=== PATIENT | male | born 1955 | race Caucasian/White ===

== ENCOUNTER 2017-11-17 16:11 | Inpatient (IN) | payer MEDICAID ==
[~2017-11-17] VITALS: Ht 190.5 cm; Wt 118.0 kg
[2017-11-17] MEDS ORDERED: temazepam 15mg capsule PO PRN (21:00)
[2017-11-17 22:00] VITALS: BP 140/87
[2017-11-17] MEDS ORDERED: ASPI-1265 PO (22:52)
[2017-11-17] MEDS ORDERED: acetaminophen 325mg tablet PO PRN ×2 (23:20)
[2017-11-17] MEDS ORDERED: diphenhydrAMINE 25mg capsule PO PRN (23:20)
[2017-11-17] MEDS ORDERED: HYDROmorphone 1 mg/ml syringe IV PRN ×2 (23:20)
[2017-11-17] MEDS ORDERED: metoclopramide 5 mg/ml inj IV PRN (23:20)
[2017-11-17] MEDS ORDERED: diphenhydrAMINE 50 mg/ml inj IV PRN (23:20)
[2017-11-17] MEDS ORDERED: morphine 2 MG/ML inj. syringe IV PRN ×2 (23:20)
[2017-11-17] MEDS ORDERED: dextrose 50%-water 50ml dispensing syringe IV PRN ×3 (23:20)
[2017-11-17] MEDS ORDERED: LORazepam 1 MG tablet PO PRN (23:20)
[2017-11-17] MEDS ORDERED: haloperidol lactate 5mg/ml inj IM PRN (23:20)
[2017-11-17] MEDS ORDERED: glucagon, human recombinant 1mg kit SUBCUT PRN (23:20)
[2017-11-17] MEDS ORDERED: acetaminophen 650mg rectal suppository RC PRN (23:20)
[2017-11-17] MEDS ORDERED: MESSAGE TO PHARMACY PO ONE (23:20)
[2017-11-17] MEDS ORDERED: HYDROcodone/acetaminophen 5mg/325mg tablet PO PRN (23:20)
[2017-11-17] MEDS ORDERED: LORazepam 2 mg/ml vial IV PRN (23:20)
[2017-11-17] MEDS ORDERED: magnesium hydroxide 30ml (MOM) UD suspension PO PRN (23:20)
[2017-11-17] MEDS ORDERED: HYDROcodone/acetaminophen 10/325mg tab PO PRN (23:20)
[2017-11-17] MEDS ORDERED: mag hydrox/Alum hydrox/simeth 30ml oral suspension PO PRN (23:20)
[2017-11-17] MEDS ORDERED: ondansetron/PF 4mg/2ml inj IV PRN (23:20)
[2017-11-17] MEDS ORDERED: dextrose ORAL solution 15 GM/59 ML bottle PO PRN ×2 (23:20)
[2017-11-17] MEDS ORDERED: bisacodyl 10mg suppository rectal RC PRN (23:20)
[2017-11-17] MEDS ORDERED: haloperidol 5mg tablet PO PRN (23:20)
[2017-11-18 01:25] LABS: INR 1.1 INR; PARTIAL THROMBOPLASTIN TIME 30 SECONDS (22-32); PROTHROMBIN TIME 11.4 SECONDS (9.0-12.0)
[2017-11-18 01:35] LABS: MAGNESIUM 1.8 MG/DL (1.5-2.4); PHOSPHORUS 2.9 MG/DL (2.3-4.5)
[2017-11-18] MEDS: vancomycin/NS 1 GM ADD-VANTAGE 250 ML IV SCH ×2 (01:36→02:00)
[2017-11-18 01:54] LABS: BASOPHILS # (AUTO) 0.1 X10'3 (0-0.2); BASOPHILS % (AUTO) 1.2 % (0-1); EOSINOPHILS # (AUTO) 0.3 X10'3 (0-0.9); EOSINOPHILS % (AUTO) 5.3 % (0-6); HEMATOCRIT 44.2 % (42.0-52.0); HEMOGLOBIN 14.3 g/dl (14.0-17.9); LYMPHOCYTES # (AUTO) 0.9 X10'3 (1.1-4.8); LYMPHOCYTES % (AUTO) 16.9 % (21-51); MEAN CORPUSCULAR HEMOGLOBIN 29.2 PG (27.0-31.0); MEAN CORPUSCULAR HGB CONC 32.5 % (33.0-36.5); MEAN PLATELET VOLUME 7.6 FL (7.4-10.4); MONOCYTES # (AUTO) 0.7 X10'3 (0-0.9); MONOCYTES % (AUTO) 13.8 % (2-12); NEUTROPHILS # (AUTO) 3.3 X10'3 (1.8-7.7); NEUTROPHILS % (AUTO) 62.8 % (42-75); PLATELET COUNT 242 X10'3 (140-440); RED BLOOD COUNT 4.91 X10'6 (4.70-6.10); RED CELL DISTRIBUTION WIDTH 14.9 % (11.5-14.5); WHITE BLOOD COUNT 5.3 X10'3 (4.5-11.0)
[2017-11-18 02:00] VITALS: BP 131/81
[2017-11-18 02:55] LABS: HEMOGLOBIN A1C 9.8 % (4.5-6.2)
[2017-11-18 05:08] LABS: BASOPHILS # (AUTO) 0.1 X10'3 (0-0.2); BASOPHILS % (AUTO) 1.5 % (0-1); EOSINOPHILS # (AUTO) 0.4 X10'3 (0-0.9); EOSINOPHILS % (AUTO) 6.1 % (0-6); HEMATOCRIT 42.8 % (42.0-52.0); HEMOGLOBIN 14.1 g/dl (14.0-17.9); LYMPHOCYTES % (AUTO) 16.1 % (21-51); MEAN CORPUSCULAR HEMOGLOBIN 29.9 PG (27.0-31.0); MEAN CORPUSCULAR VOLUME 90.5 FL (78-98); MEAN PLATELET VOLUME 7.2 FL (7.4-10.4); MONOCYTES # (AUTO) 0.8 X10'3 (0-0.9); MONOCYTES % (AUTO) 13.9 % (2-12); NEUTROPHILS # (AUTO) 3.7 X10'3 (1.8-7.7); NEUTROPHILS % (AUTO) 62.4 % (42-75); PLATELET COUNT 252 X10'3 (140-440); RED BLOOD COUNT 4.72 X10'6 (4.70-6.10); RED CELL DISTRIBUTION WIDTH 15.9 % (11.5-14.5); WHITE BLOOD COUNT 5.9 X10'3 (4.5-11.0)
[2017-11-18] MEDS ORDERED: magnesium 4gm in 100ml NS 100 ML IV PRN (05:35)
[2017-11-18] MEDS ORDERED: sodium phosphate inj. 30 MMOL in dextrose 5%-water 250 ML IV PRN (05:35)
[2017-11-18] MEDS ORDERED: Neutra Phos packet PO PRN (05:35)
[2017-11-18] MEDS ORDERED: potassium Cl 20 mEq SR tablet PO PRN ×2 (05:35)
[2017-11-18] MEDS ORDERED: magnesium 2GM in 50ml NS 50 ML IV PRN (05:35)
[2017-11-18] MEDS ORDERED: sodium phosphate inj. 15 MMOL in dextrose 5%-water 150 ML IV PRN (05:35)
[2017-11-18] MEDS ORDERED: magnesium Cl slow-release 64mg tablet PO PRN (05:35)
[2017-11-18 06:00] VITALS: BP 127/74
[2017-11-18 06:00] LABS: ALBUMIN 2.4 G/DL (3.4-5.0); ALBUMIN/GLOBULIN RATIO 0.6 (1.1-1.5); ANION GAP 3 (8-16); ASPARTATE AMINO TRANSFERASE 56 U/L (10-37); BILIRUBIN,TOTAL 0.6 MG/DL (0.1-1.0); BLOOD UREA NITROGEN 14 MG/DL (7-18); CALCIUM 8.1 MG/DL (8.5-10.1); CHLORIDE 99 MMOL/L (99-107); GLUCOSE 148 MG/DL (70-104); MAGNESIUM 1.8 MG/DL (1.5-2.4); PHOSPHORUS 2.9 MG/DL (2.3-4.5); POTASSIUM 3.6 MMOL/L (3.5-5.1); SODIUM 140 MMOL/L (135-145); TOTAL CARBON DIOXIDE 38.3 MMOL/L (24-32); TOTAL PROTEIN 6.2 G/DL (6.4-8.2); eGFR 75 ML/MIN
[2017-11-18 06:01] LABS: ALANINE AMINOTRANSFERASE 48 U/L (12-78); ALKALINE PHOSPHATASE 316 IU/L (46-116); CHOL/HDL RATIO 2.1 (0.00-4.99); CHOLESTEROL 103 MG/DL (0-200); HDL CHOLESTEROL 49 MG/DL (35-60); LDL CHOLESTEROL 43 MG/DL (50-100); TRIGLYCERIDES 73 MG/DL (20-135)
[2017-11-18] MEDS: aspirin 81mg tab.chew PO SCH (07:14)
[2017-11-18] MEDS: docusate sod 100mg capsule PO SCH ×2 (07:14→19:22)
[2017-11-18] MEDS: pantoprazole 40mg Tablet.DR PO SCH (07:14)
[2017-11-18] MEDS: enoxaparin 30mg/0.3ml syringe SQ SCH ×2 (07:15→19:23)
[2017-11-18] MEDS: nicotine 21mg patch - 24 hr TD SCH (07:17)
[2017-11-18] MEDS ORDERED: vancomycin/NS 1 GM ADD-VANTAGE 250 ML IV SCH (08:00)
[2017-11-18 09:25] LABS: COLOR,URINE Yellow (Yellow); GLUCOSE, URINE Negative (Neg); KETONES,URINE Negative (Neg); LEUKOCYTE ESTERASE ,URINE Trace (Neg); NITRITES, URINE Negative (Neg); OCCULT BLOOD,URINE Moderate (Neg); PROTEIN,URINE 100 mg/dl (Neg)
[2017-11-18 09:31] LABS: CLARITY,URINE SLIGHTLY CLOUDY (Clear); UA COLLECTION TYPE NON-SPECIFIED
[2017-11-18 09:50] LABS: BACTERIA,URINE FEW /HPF (Neg); MUCUS STRANDS NONE SEEN /LPF (Neg); RBC,URINE 20-50 /HPF (0-2); SQUAMOUS EPITHELIAL CELL,UR NONE SEEN /LPF (FEW); WBC,URINE 0-4 /HPF (0-4)
[2017-11-18 11:00] VITALS: BP 154/101
[2017-11-18 12:37] LABS: ALBUMIN 2.3 G/DL (3.4-5.0); ANION GAP 1 (8-16); BLOOD UREA NITROGEN 13 MG/DL (7-18); CALCIUM 8.3 MG/DL (8.5-10.1); CHLORIDE 100 MMOL/L (99-107); GLUCOSE 151 MG/DL (70-104); MAGNESIUM 1.8 MG/DL (1.5-2.4); PHOSPHORUS 2.9 MG/DL (2.3-4.5); POTASSIUM 3.8 MMOL/L (3.5-5.1); SODIUM 141 MMOL/L (135-145); eGFR 75 ML/MIN
[2017-11-18] MEDS ORDERED: levoFLOXACIN-Levaquin 750MG/D5 150 ML IV STA (13:42)
[2017-11-18 15:00] VITALS: BP 147/96
[2017-11-18 19:00] VITALS: BP 144/86
[2017-11-18] MEDS: insulin Lispro (HumaLOG) vial - multi-dose SQ SCH (19:13)
[2017-11-18] MEDS: insulin glargine (Lantus) pen - multi-dose SQ SCH (21:28)
[2017-11-18] MEDS ORDERED: VANCOMYCIN LEVEL IV ONE (23:30)
[2017-11-18 23:44] VITALS: BP 149/86
[2017-11-19] VITALS (7 sets, daily range): BP systolic 133–163; BP diastolic 67–103
[2017-11-19 00:02] LABS: ALBUMIN 2.3 G/DL (3.4-5.0); ANION GAP 2 (8-16); BLOOD UREA NITROGEN 15 MG/DL (7-18); CALCIUM 8.2 MG/DL (8.5-10.1); CHLORIDE 102 MMOL/L (99-107); GLUCOSE 130 MG/DL (70-104); MAGNESIUM 1.7 MG/DL (1.5-2.4); PHOSPHORUS 2.7 MG/DL (2.3-4.5); POTASSIUM 3.9 MMOL/L (3.5-5.1); SODIUM 141 MMOL/L (135-145); TOTAL CARBON DIOXIDE 37.1 MMOL/L (24-32); eGFR 75 ML/MIN
[2017-11-19 00:04] LABS: VANCOMYCIN,TROUGH 26.2 UG/ML (6.0-14.0)
[2017-11-19 05:34] LABS: BASOPHILS # (AUTO) 0.1 X10'3 (0-0.2); BASOPHILS % (AUTO) 1.1 % (0-1); EOSINOPHILS # (AUTO) 0.3 X10'3 (0-0.9); EOSINOPHILS % (AUTO) 5.2 % (0-6); HEMATOCRIT 42.9 % (42.0-52.0); HEMOGLOBIN 14.4 g/dl (14.0-17.9); LYMPHOCYTES # (AUTO) 0.8 X10'3 (1.1-4.8); LYMPHOCYTES % (AUTO) 12.3 % (21-51); MEAN CORPUSCULAR HEMOGLOBIN 30.3 PG (27.0-31.0); MEAN CORPUSCULAR HGB CONC 33.5 % (33.0-36.5); MEAN CORPUSCULAR VOLUME 90.5 FL (78-98); MEAN PLATELET VOLUME 7.3 FL (7.4-10.4); MONOCYTES # (AUTO) 0.8 X10'3 (0-0.9); MONOCYTES % (AUTO) 12.5 % (2-12); NEUTROPHILS # (AUTO) 4.6 X10'3 (1.8-7.7); NEUTROPHILS % (AUTO) 68.9 % (42-75); PLATELET COUNT 237 X10'3 (140-440); RED BLOOD COUNT 4.74 X10'6 (4.70-6.10); RED CELL DISTRIBUTION WIDTH 15.7 % (11.5-14.5); WHITE BLOOD COUNT 6.7 X10'3 (4.5-11.0)
[2017-11-19 05:49] LABS: ALANINE AMINOTRANSFERASE 45 U/L (12-78); ALBUMIN 2.4 G/DL (3.4-5.0); ALBUMIN/GLOBULIN RATIO 0.6 (1.1-1.5); ALKALINE PHOSPHATASE 339 IU/L (46-116); ANION GAP 3 (8-16); ASPARTATE AMINO TRANSFERASE 49 U/L (10-37); BILIRUBIN,TOTAL 0.8 MG/DL (0.1-1.0); BLOOD UREA NITROGEN 14 MG/DL (7-18); BUN/CREATININE RATIO 15.6 (5.4-32.0); CALCIUM 8.5 MG/DL (8.5-10.1); CHLORIDE 100 MMOL/L (99-107); GLUCOSE 116 MG/DL (70-104); MAGNESIUM 1.9 MG/DL (1.5-2.4); PHOSPHORUS 3.1 MG/DL (2.3-4.5); POTASSIUM 3.7 MMOL/L (3.5-5.1); SODIUM 140 MMOL/L (135-145); TOTAL PROTEIN 6.4 G/DL (6.4-8.2); eGFR 85 ML/MIN
[2017-11-19] MEDS: nicotine 21mg patch - 24 hr TD SCH (08:00)
[2017-11-19] MEDS: pantoprazole 40mg Tablet.DR PO SCH (08:39)
[2017-11-19] MEDS: levoFLOXACIN-Levaquin 750MG/D5 150 ML IV SCH (08:39)
[2017-11-19] MEDS: enoxaparin 30mg/0.3ml syringe SQ SCH ×2 (08:39→20:55)
[2017-11-19] MEDS: docusate sod 100mg capsule PO SCH ×2 (08:40→20:54)
[2017-11-19] MEDS: aspirin 81mg tab.chew PO SCH (08:40)
[2017-11-19] MEDS: insulin Lispro (HumaLOG) vial - multi-dose SQ SCH ×3 (09:22→18:59)
[2017-11-19] MEDS ORDERED: pneumococcal 23-VAL P-sac vacc 25 mcg/0.5ml vial IMVAC ONE (10:00)
[2017-11-19] MEDS: vancomycin/NS 1 GM ADD-VANTAGE 250 ML IV SCH (10:37)
[2017-11-19] MEDS: lactobacillus rhamnosus 10,000 MMU CELLS/CAPSULE PO SCH (19:04)
[2017-11-19] MEDS: insulin glargine (Lantus) pen - multi-dose SQ SCH (21:10)
[2017-11-20] MEDS: vancomycin/NS 1 GM ADD-VANTAGE 250 ML IV SCH ×3 (01:00→09:54)
[2017-11-20 02:00] VITALS: BP 151/96
[2017-11-20 06:16] LABS: BASOPHILS # (AUTO) 0.1 X10'3 (0-0.2); BASOPHILS % (AUTO) 0.8 % (0-1); EOSINOPHILS # (AUTO) 0.3 X10'3 (0-0.9); EOSINOPHILS % (AUTO) 4.5 % (0-6); HEMATOCRIT 44.3 % (42.0-52.0); HEMOGLOBIN 14.6 g/dl (14.0-17.9); LYMPHOCYTES # (AUTO) 0.9 X10'3 (1.1-4.8); LYMPHOCYTES % (AUTO) 12.2 % (21-51); MEAN CORPUSCULAR HEMOGLOBIN 30.1 PG (27.0-31.0); MEAN PLATELET VOLUME 8.1 FL (7.4-10.4); MONOCYTES # (AUTO) 0.9 X10'3 (0-0.9); MONOCYTES % (AUTO) 12.5 % (2-12); NEUTROPHILS # (AUTO) 4.9 X10'3 (1.8-7.7); PLATELET COUNT 218 X10'3 (140-440); RED BLOOD COUNT 4.86 X10'6 (4.70-6.10); RED CELL DISTRIBUTION WIDTH 15.4 % (11.5-14.5); WHITE BLOOD COUNT 7.1 X10'3 (4.5-11.0)
[2017-11-20 06:48] LABS: ALANINE AMINOTRANSFERASE 43 U/L (12-78); ALBUMIN 2.6 G/DL (3.4-5.0); ALBUMIN/GLOBULIN RATIO 0.6 (1.1-1.5); ALKALINE PHOSPHATASE 362 IU/L (46-116); ANION GAP 5 (8-16); ASPARTATE AMINO TRANSFERASE 41 U/L (10-37); BILIRUBIN,TOTAL 0.8 MG/DL (0.1-1.0); BLOOD UREA NITROGEN 15 MG/DL (7-18); BUN/CREATININE RATIO 16.7 (5.4-32.0); CALCIUM 8.6 MG/DL (8.5-10.1); CHLORIDE 101 MMOL/L (99-107); GLUCOSE 111 MG/DL (70-104); MAGNESIUM 1.9 MG/DL (1.5-2.4); PHOSPHORUS 3.7 MG/DL (2.3-4.5); POTASSIUM 3.7 MMOL/L (3.5-5.1); SODIUM 141 MMOL/L (135-145); TOTAL CARBON DIOXIDE 34.8 MMOL/L (24-32); TOTAL PROTEIN 6.8 G/DL (6.4-8.2); eGFR 85 ML/MIN
[2017-11-20 07:14] VITALS: BP 165/100
[2017-11-20] MEDS: levoFLOXACIN-Levaquin 750MG/D5 150 ML IV SCH (07:59)
[2017-11-20] MEDS: lactobacillus rhamnosus 10,000 MMU CELLS/CAPSULE PO SCH ×2 (07:59→16:57)
[2017-11-20] MEDS: aspirin 81mg tab.chew PO SCH (07:59)
[2017-11-20] MEDS: docusate sod 100mg capsule PO SCH ×2 (07:59→20:59)
[2017-11-20] MEDS: pantoprazole 40mg Tablet.DR PO SCH (08:00)
[2017-11-20] MEDS: clopidogrel 75mg tablet PO SCH (08:00)
[2017-11-20] MEDS: enoxaparin 30mg/0.3ml syringe SQ SCH ×2 (08:00→21:00)
[2017-11-20] MEDS: nicotine 21mg patch - 24 hr TD SCH (08:00)
[2017-11-20] MEDS: thiamine 100mg tablet PO SCH (08:00)
[2017-11-20] MEDS ORDERED: VANCOMYCIN LEVEL IV ONE (08:30)
[2017-11-20] MEDS: insulin Lispro (HumaLOG) vial - multi-dose SQ SCH ×3 (09:31→19:03)
[2017-11-20] MEDS: lisinopril 10 MG tablet PO SCH (09:54)
[2017-11-20 11:24] VITALS: BP 153/79
[2017-11-20 20:00] VITALS: BP 191/110
[2017-11-20] MEDS: metroNIDAZOLE 500mg tablet PO SCH (20:59)
[2017-11-20] MEDS: hyDRALAzine 10mg tablet PO PRN (21:00)
[2017-11-20] MEDS: insulin glargine (Lantus) pen - multi-dose SQ SCH (21:10)
[2017-11-21] VITALS: BP 157/98
[2017-11-21 05:57] LABS: ALANINE AMINOTRANSFERASE 34 U/L (12-78); ALBUMIN 2.5 G/DL (3.4-5.0); ALBUMIN/GLOBULIN RATIO 0.6 (1.1-1.5); ALKALINE PHOSPHATASE 347 IU/L (46-116); ANION GAP 4 (8-16); ASPARTATE AMINO TRANSFERASE 32 U/L (10-37); BILIRUBIN,TOTAL 0.7 MG/DL (0.1-1.0); BLOOD UREA NITROGEN 17 MG/DL (7-18); CALCIUM 8.9 MG/DL (8.5-10.1); CHLORIDE 102 MMOL/L (99-107); GLUCOSE 118 MG/DL (70-104); MAGNESIUM 1.9 MG/DL (1.5-2.4); PHOSPHORUS 4.1 MG/DL (2.3-4.5); POTASSIUM 3.7 MMOL/L (3.5-5.1); SODIUM 141 MMOL/L (135-145); TOTAL CARBON DIOXIDE 34.7 MMOL/L (24-32); TOTAL PROTEIN 6.7 G/DL (6.4-8.2); eGFR 75 ML/MIN
[2017-11-21 05:59] LABS: BASOPHILS % (AUTO) 0.3 % (0-1); EOSINOPHILS # (AUTO) 0.3 X10'3 (0-0.9); EOSINOPHILS % (AUTO) 3.9 % (0-6); HEMATOCRIT 44.8 % (42.0-52.0); HEMOGLOBIN 14.7 g/dl (14.0-17.9); LYMPHOCYTES # (AUTO) 0.8 X10'3 (1.1-4.8); LYMPHOCYTES % (AUTO) 11.8 % (21-51); MEAN CORPUSCULAR HEMOGLOBIN 29.9 PG (27.0-31.0); MEAN CORPUSCULAR HGB CONC 32.7 % (33.0-36.5); MEAN CORPUSCULAR VOLUME 91.5 FL (78-98); MEAN PLATELET VOLUME 7.7 FL (7.4-10.4); MONOCYTES # (AUTO) 0.9 X10'3 (0-0.9); MONOCYTES % (AUTO) 12.2 % (2-12); NEUTROPHILS % (AUTO) 71.8 % (42-75); PLATELET COUNT 259 X10'3 (140-440); RED CELL DISTRIBUTION WIDTH 15.8 % (11.5-14.5)
[2017-11-21 07:00] VITALS: BP 154/99
[2017-11-21] MEDS: nicotine 21mg patch - 24 hr TD SCH (08:00)
[2017-11-21] MEDS: pantoprazole 40mg Tablet.DR PO SCH (08:21)
[2017-11-21] MEDS: lactobacillus rhamnosus 10,000 MMU CELLS/CAPSULE PO SCH ×2 (08:21→17:02)
[2017-11-21] MEDS: aspirin 81mg tab.chew PO SCH (08:21)
[2017-11-21] MEDS: clopidogrel 75mg tablet PO SCH (08:21)
[2017-11-21] MEDS: silver sulfadiazine cream 50gm TP SCH (08:22)
[2017-11-21] MEDS: thiamine 100mg tablet PO SCH (08:22)
[2017-11-21] MEDS: lisinopril 10 MG tablet PO SCH (08:22)
[2017-11-21] MEDS: docusate sod 100mg capsule PO SCH ×2 (08:22→19:27)
[2017-11-21] MEDS: metroNIDAZOLE 500mg tablet PO SCH ×2 (08:22→19:27)
[2017-11-21] MEDS: terbinafine 250mg tablet PO SCH (08:22)
[2017-11-21] MEDS: enoxaparin 30mg/0.3ml syringe SQ SCH ×2 (08:23→19:27)
[2017-11-21] MEDS: insulin Lispro (HumaLOG) vial - multi-dose SQ SCH ×3 (08:31→18:48)
[2017-11-21] MEDS: levoFLOXACIN 750MG TABLET PO SCH (11:22)
[2017-11-21 11:56] VITALS: BP 160/95
[2017-11-21] MEDS: hyDRALAzine 10mg tablet PO PRN (18:53)
[2017-11-21] MEDS: furosemide 40mg/4ml inj IV SCH (19:27)
[2017-11-21 20:00] VITALS: BP 162/100
[2017-11-21] MEDS: insulin glargine (Lantus) pen - multi-dose SQ SCH (20:53)
[2017-11-22] VITALS: BP 159/101
[2017-11-22 07:32] LABS: BASOPHILS # (AUTO) 0.1 X10'3 (0-0.2); BASOPHILS % (AUTO) 1.3 % (0-1); EOSINOPHILS # (AUTO) 0.3 X10'3 (0-0.9); EOSINOPHILS % (AUTO) 4.1 % (0-6); HEMATOCRIT 43.8 % (42.0-52.0); HEMOGLOBIN 14.4 g/dl (14.0-17.9); LYMPHOCYTES # (AUTO) 0.9 X10'3 (1.1-4.8); LYMPHOCYTES % (AUTO) 14.8 % (21-51); MEAN CORPUSCULAR HEMOGLOBIN 29.6 PG (27.0-31.0); MEAN CORPUSCULAR VOLUME 89.6 FL (78-98); MEAN PLATELET VOLUME 7.2 FL (7.4-10.4); MONOCYTES # (AUTO) 0.8 X10'3 (0-0.9); MONOCYTES % (AUTO) 13.3 % (2-12); NEUTROPHILS # (AUTO) 4.2 X10'3 (1.8-7.7); NEUTROPHILS % (AUTO) 66.5 % (42-75); PLATELET COUNT 287 X10'3 (140-440); RED BLOOD COUNT 4.89 X10'6 (4.70-6.10); RED CELL DISTRIBUTION WIDTH 15.2 % (11.5-14.5); WHITE BLOOD COUNT 6.3 X10'3 (4.5-11.0)
[2017-11-22 07:49] LABS: ALANINE AMINOTRANSFERASE 35 U/L (12-78); ALBUMIN 2.6 G/DL (3.4-5.0); ALBUMIN/GLOBULIN RATIO 0.6 (1.1-1.5); ALKALINE PHOSPHATASE 363 IU/L (46-116); ANION GAP 2 (8-16); ASPARTATE AMINO TRANSFERASE 32 U/L (10-37); BILIRUBIN,TOTAL 0.6 MG/DL (0.1-1.0); BLOOD UREA NITROGEN 20 MG/DL (7-18); BUN/CREATININE RATIO 18.2 (5.4-32.0); CHLORIDE 103 MMOL/L (99-107); GLUCOSE 87 MG/DL (70-104); SODIUM 143 MMOL/L (135-145); TOTAL CARBON DIOXIDE 37.7 MMOL/L (24-32); TOTAL PROTEIN 6.7 G/DL (6.4-8.2); eGFR 67 ML/MIN
[2017-11-22 08:00] VITALS: BP 154/80
[2017-11-22] MEDS: nicotine 21mg patch - 24 hr TD SCH (08:00)
[2017-11-22] MEDS: lisinopril 10 MG tablet PO SCH (08:05)
[2017-11-22] MEDS: pantoprazole 40mg Tablet.DR PO SCH (08:05)
[2017-11-22] MEDS: furosemide 40mg/4ml inj IV SCH ×2 (08:05→19:34)
[2017-11-22] MEDS: docusate sod 100mg capsule PO SCH ×2 (08:05→19:33)
[2017-11-22] MEDS: thiamine 100mg tablet PO SCH (08:05)
[2017-11-22] MEDS: terbinafine 250mg tablet PO SCH (08:05)
[2017-11-22] MEDS: lactobacillus rhamnosus 10,000 MMU CELLS/CAPSULE PO SCH ×2 (08:05→19:36)
[2017-11-22] MEDS: enoxaparin 30mg/0.3ml syringe SQ SCH ×2 (08:06→13:44)
[2017-11-22] MEDS: metroNIDAZOLE 500mg tablet PO SCH ×2 (08:06→19:34)
[2017-11-22] MEDS: clopidogrel 75mg tablet PO SCH ×2 (08:06→13:42)
[2017-11-22] MEDS: aspirin 81mg tab.chew PO SCH (08:06)
[2017-11-22] MEDS: silver sulfadiazine cream 50gm TP SCH (08:11)
[2017-11-22] MEDS: insulin Lispro (HumaLOG) vial - multi-dose SQ SCH ×3 (10:27→19:11)
[2017-11-22 11:00] VITALS: BP 122/68
[2017-11-22] MEDS: levoFLOXACIN 750MG TABLET PO SCH (11:00)
[2017-11-22] MEDS ORDERED: HYDROmorphone 2mg/ml vial IV PRN (19:23)
[2017-11-22] MEDS: carVEDilol 3.125mg tablet PO SCH (19:34)
[2017-11-22] MEDS: HYDROmorphone 2mg/ml vial IV PRN (19:35)
[2017-11-22 20:00] VITALS: BP 164/106
[2017-11-22] MEDS: insulin glargine (Lantus) pen - multi-dose SQ SCH (23:55)
[2017-11-23] VITALS: BP 150/85
[2017-11-23] MEDS: HYDROmorphone 2mg/ml vial IV PRN (01:02)
[2017-11-23 08:00] VITALS: BP 143/82
[2017-11-23] MEDS: nicotine 21mg patch - 24 hr TD SCH (08:00)
[2017-11-23] MEDS: lisinopril 10 MG tablet PO SCH (08:09)
[2017-11-23] MEDS: metroNIDAZOLE 500mg tablet PO SCH ×2 (08:09→19:28)
[2017-11-23] MEDS: carVEDilol 3.125mg tablet PO SCH ×2 (08:09→19:29)
[2017-11-23] MEDS: lactobacillus rhamnosus 10,000 MMU CELLS/CAPSULE PO SCH ×2 (08:09→17:30)
[2017-11-23] MEDS: docusate sod 100mg capsule PO SCH ×2 (08:09→19:28)
[2017-11-23] MEDS: aspirin 81mg tab.chew PO SCH (08:09)
[2017-11-23] MEDS: terbinafine 250mg tablet PO SCH (08:09)
[2017-11-23] MEDS: pantoprazole 40mg Tablet.DR PO SCH (08:09)
[2017-11-23] MEDS: thiamine 100mg tablet PO SCH (08:10)
[2017-11-23] MEDS: furosemide 40mg/4ml inj IV SCH ×2 (08:10→19:28)
[2017-11-23] MEDS: silver sulfadiazine cream 50gm TP SCH (08:10)
[2017-11-23] MEDS: insulin Lispro (HumaLOG) vial - multi-dose SQ SCH ×2 (08:30→19:37)
[2017-11-23 08:40] VITALS: BP 149/88
[2017-11-23 08:55] VITALS: BP 143/88
[2017-11-23 10:30] LABS: ALBUMIN,BODY FLUID 1.3 G/DL; AMYLASE,BODY FLUID 22 U/L; GLUCOSE,BODY FLUID 127 MG/DL; LDH,BODY FLUID 108 U/L
[2017-11-23 10:59] LABS: BFSOURCE PLEURAL FLD
[2017-11-23] MEDS: levoFLOXACIN 750MG TABLET PO SCH (11:00)
[2017-11-23] MEDS: enoxaparin 30mg/0.3ml syringe SQ SCH (19:29)
[2017-11-23 20:00] VITALS: BP 152/95
[2017-11-23] MEDS: insulin glargine (Lantus) pen - multi-dose SQ SCH (21:54)
[2017-11-24] VITALS: BP 137/79
[2017-11-24 06:10] LABS: BASOPHILS # (AUTO) 0.1 X10'3 (0-0.2); BASOPHILS % (AUTO) 1.2 % (0-1); EOSINOPHILS # (AUTO) 0.4 X10'3 (0-0.9); EOSINOPHILS % (AUTO) 5.7 % (0-6); HEMATOCRIT 44.8 % (42.0-52.0); HEMOGLOBIN 14.8 g/dl (14.0-17.9); LYMPHOCYTES # (AUTO) 0.9 X10'3 (1.1-4.8); LYMPHOCYTES % (AUTO) 14.4 % (21-51); MEAN CORPUSCULAR HEMOGLOBIN 29.9 PG (27.0-31.0); MEAN CORPUSCULAR HGB CONC 33.1 % (33.0-36.5); MEAN CORPUSCULAR VOLUME 90.3 FL (78-98); MONOCYTES # (AUTO) 0.9 X10'3 (0-0.9); MONOCYTES % (AUTO) 13.2 % (2-12); NEUTROPHILS # (AUTO) 4.3 X10'3 (1.8-7.7); NEUTROPHILS % (AUTO) 65.5 % (42-75); PLATELET COUNT 302 X10'3 (140-440); RED BLOOD COUNT 4.96 X10'6 (4.70-6.10); RED CELL DISTRIBUTION WIDTH 15.6 % (11.5-14.5); WHITE BLOOD COUNT 6.6 X10'3 (4.5-11.0)
[2017-11-24 07:00] VITALS: BP 154/93
[2017-11-24] MEDS: lactobacillus rhamnosus 10,000 MMU CELLS/CAPSULE PO SCH ×2 (07:39→17:29)
[2017-11-24] MEDS: pantoprazole 40mg Tablet.DR PO SCH (07:39)
[2017-11-24] MEDS: aspirin 81mg tab.chew PO SCH (07:39)
[2017-11-24] MEDS: thiamine 100mg tablet PO SCH (07:40)
[2017-11-24] MEDS: terbinafine 250mg tablet PO SCH (07:40)
[2017-11-24] MEDS: lisinopril 10 MG tablet PO SCH (07:40)
[2017-11-24] MEDS: metroNIDAZOLE 500mg tablet PO SCH ×2 (07:40→20:04)
[2017-11-24] MEDS: enoxaparin 30mg/0.3ml syringe SQ SCH ×2 (07:40→20:04)
[2017-11-24] MEDS: clopidogrel 75mg tablet PO SCH (07:40)
[2017-11-24] MEDS: docusate sod 100mg capsule PO SCH ×2 (07:40→20:04)
[2017-11-24] MEDS: furosemide 40mg/4ml inj IV SCH ×2 (07:40→20:04)
[2017-11-24] MEDS: carVEDilol 3.125mg tablet PO SCH ×2 (07:40→20:04)
[2017-11-24] MEDS: nicotine 21mg patch - 24 hr TD SCH (07:48)
[2017-11-24 07:52] LABS: ALANINE AMINOTRANSFERASE 29 U/L (12-78); ALBUMIN 2.8 G/DL (3.4-5.0); ALBUMIN/GLOBULIN RATIO 0.7 (1.1-1.5); ALKALINE PHOSPHATASE 380 IU/L (46-116); ANION GAP 5 (8-16); ASPARTATE AMINO TRANSFERASE 35 U/L (10-37); BILIRUBIN,TOTAL 0.7 MG/DL (0.1-1.0); BLOOD UREA NITROGEN 21 MG/DL (7-18); BUN/CREATININE RATIO 17.5 (5.4-32.0); CALCIUM 8.9 MG/DL (8.5-10.1); CHLORIDE 99 MMOL/L (99-107); GLUCOSE 89 MG/DL (70-104); POTASSIUM 3.8 MMOL/L (3.5-5.1); SODIUM 143 MMOL/L (135-145); TOTAL CARBON DIOXIDE 39.1 MMOL/L (24-32); eGFR 61 ML/MIN
[2017-11-24] MEDS: silver sulfadiazine cream 50gm TP SCH (08:00)
[2017-11-24] MEDS: insulin Lispro (HumaLOG) vial - multi-dose SQ SCH ×3 (08:57→20:11)
[2017-11-24] MEDS: levoFLOXACIN 750MG TABLET PO SCH (10:29)
[2017-11-24 11:35] VITALS: BP 114/65
[2017-11-24 20:00] VITALS: BP 152/97
[2017-11-24] MEDS: insulin glargine (Lantus) pen - multi-dose SQ SCH (22:05)
[2017-11-25] VITALS: BP 141/85
[2017-11-25 06:35] LABS: BASOPHILS # (AUTO) 0.1 X10'3 (0-0.2); BASOPHILS % (AUTO) 1.2 % (0-1); EOSINOPHILS # (AUTO) 0.4 X10'3 (0-0.9); EOSINOPHILS % (AUTO) 6.2 % (0-6); HEMATOCRIT 44.4 % (42.0-52.0); HEMOGLOBIN 14.6 g/dl (14.0-17.9); LYMPHOCYTES # (AUTO) 0.9 X10'3 (1.1-4.8); LYMPHOCYTES % (AUTO) 15.7 % (21-51); MEAN CORPUSCULAR HEMOGLOBIN 29.9 PG (27.0-31.0); MEAN CORPUSCULAR HGB CONC 32.9 % (33.0-36.5); MEAN PLATELET VOLUME 7.4 FL (7.4-10.4); MONOCYTES # (AUTO) 0.8 X10'3 (0-0.9); NEUTROPHILS # (AUTO) 3.8 X10'3 (1.8-7.7); NEUTROPHILS % (AUTO) 63.9 % (42-75); PLATELET COUNT 310 X10'3 (140-440); RED BLOOD COUNT 4.88 X10'6 (4.70-6.10); RED CELL DISTRIBUTION WIDTH 15.3 % (11.5-14.5); WHITE BLOOD COUNT 5.9 X10'3 (4.5-11.0)
[2017-11-25 07:00] VITALS: BP 135/75
[2017-11-25 07:10] LABS: ALANINE AMINOTRANSFERASE 27 U/L (12-78); ALBUMIN 2.7 G/DL (3.4-5.0); ALBUMIN/GLOBULIN RATIO 0.7 (1.1-1.5); ALKALINE PHOSPHATASE 386 IU/L (46-116); ANION GAP 3 (8-16); ASPARTATE AMINO TRANSFERASE 35 U/L (10-37); BILIRUBIN,TOTAL 0.7 MG/DL (0.1-1.0); BLOOD UREA NITROGEN 21 MG/DL (7-18); CALCIUM 8.9 MG/DL (8.5-10.1); CHLORIDE 99 MMOL/L (99-107); GLUCOSE 100 MG/DL (70-104); POTASSIUM 3.8 MMOL/L (3.5-5.1); SODIUM 142 MMOL/L (135-145); TOTAL CARBON DIOXIDE 39.6 MMOL/L (24-32); TOTAL PROTEIN 6.8 G/DL (6.4-8.2); eGFR 75 ML/MIN
[2017-11-25] MEDS: carVEDilol 3.125mg tablet PO SCH ×2 (07:27→20:10)
[2017-11-25] MEDS: pantoprazole 40mg Tablet.DR PO SCH (07:27)
[2017-11-25] MEDS: clopidogrel 75mg tablet PO SCH (07:27)
[2017-11-25] MEDS: docusate sod 100mg capsule PO SCH ×2 (07:27→20:10)
[2017-11-25] MEDS: furosemide 40mg/4ml inj IV SCH ×2 (07:27→20:10)
[2017-11-25] MEDS: lisinopril 10 MG tablet PO SCH (07:27)
[2017-11-25] MEDS: lactobacillus rhamnosus 10,000 MMU CELLS/CAPSULE PO SCH ×2 (07:28→17:34)
[2017-11-25] MEDS: metroNIDAZOLE 500mg tablet PO SCH ×2 (07:28→20:10)
[2017-11-25] MEDS: enoxaparin 30mg/0.3ml syringe SQ SCH (07:28)
[2017-11-25] MEDS: thiamine 100mg tablet PO SCH (07:28)
[2017-11-25] MEDS: aspirin 81mg tab.chew PO SCH (07:28)
[2017-11-25] MEDS: nicotine 21mg patch - 24 hr TD SCH (07:32)
[2017-11-25] MEDS: terbinafine 250mg tablet PO SCH (07:38)
[2017-11-25] MEDS: silver sulfadiazine cream 50gm TP SCH (08:00)
[2017-11-25] MEDS: insulin Lispro (HumaLOG) vial - multi-dose SQ SCH ×3 (09:33→19:23)
[2017-11-25 11:00] VITALS: BP 135/89
[2017-11-25] MEDS: levoFLOXACIN 750MG TABLET PO SCH (13:45)
[2017-11-25] MEDS: potassium Cl 20 mEq SR tablet PO SCH (18:28)
[2017-11-25 19:00] VITALS: BP 136/81
[2017-11-25] MEDS: insulin glargine (Lantus) pen - multi-dose SQ SCH (21:52)
[2017-11-26] VITALS: BP 142/93
[2017-11-26 07:24] VITALS: BP 141/83
[2017-11-26 07:52] LABS: ALBUMIN 2.7 G/DL (3.4-5.0); ANION GAP 6 (8-16); BLOOD UREA NITROGEN 23 MG/DL (7-18); BUN/CREATININE RATIO 20.9 (5.4-32.0); CALCIUM 8.6 MG/DL (8.5-10.1); CHLORIDE 97 MMOL/L (99-107); GLUCOSE 91 MG/DL (70-104); POTASSIUM 3.7 MMOL/L (3.5-5.1); SODIUM 140 MMOL/L (135-145); TOTAL CARBON DIOXIDE 36.6 MMOL/L (24-32); eGFR 67 ML/MIN
[2017-11-26] MEDS: enoxaparin 40mg/0.4ml syringe SQ SCH (07:57)
[2017-11-26] MEDS: potassium Cl 20 mEq SR tablet PO SCH ×2 (07:57→16:34)
[2017-11-26] MEDS: lisinopril 10 MG tablet PO SCH (07:57)
[2017-11-26] MEDS: furosemide 40mg/4ml inj IV SCH ×2 (07:57→21:17)
[2017-11-26] MEDS: clopidogrel 75mg tablet PO SCH (07:58)
[2017-11-26] MEDS: metroNIDAZOLE 500mg tablet PO SCH ×2 (07:58→21:17)
[2017-11-26] MEDS: amLODIPine 5mg tablet PO SCH (07:58)
[2017-11-26] MEDS: aspirin 81mg tab.chew PO SCH (07:58)
[2017-11-26] MEDS: thiamine 100mg tablet PO SCH (07:58)
[2017-11-26] MEDS: carVEDilol 3.125mg tablet PO SCH ×2 (07:58→21:17)
[2017-11-26] MEDS: lactobacillus rhamnosus 10,000 MMU CELLS/CAPSULE PO SCH ×2 (07:58→16:34)
[2017-11-26] MEDS: terbinafine 250mg tablet PO SCH (07:58)
[2017-11-26] MEDS: pantoprazole 40mg Tablet.DR PO SCH (07:58)
[2017-11-26] MEDS: docusate sod 100mg capsule PO SCH ×2 (07:58→21:17)
[2017-11-26] MEDS: silver sulfadiazine cream 50gm TP SCH (07:59)
[2017-11-26] MEDS: nicotine 21mg patch - 24 hr TD SCH (07:59)
[2017-11-26] MEDS: insulin Lispro (HumaLOG) vial - multi-dose SQ SCH ×3 (08:11→18:55)
[2017-11-26 11:27] VITALS: BP 134/88
[2017-11-26] MEDS: levoFLOXACIN 750MG TABLET PO SCH (12:09)
[2017-11-26 19:00] VITALS: BP 156/93
[2017-11-26] MEDS: insulin glargine (Lantus) pen - multi-dose SQ SCH (21:49)
[2017-11-27] VITALS: BP 127/72
[2017-11-27 06:24] LABS: ALBUMIN 2.6 G/DL (3.4-5.0); ANION GAP 4 (8-16); BLOOD UREA NITROGEN 22 MG/DL (7-18); CALCIUM 8.8 MG/DL (8.5-10.1); CHLORIDE 102 MMOL/L (99-107); GLUCOSE 104 MG/DL (70-104); POTASSIUM 3.6 MMOL/L (3.5-5.1); SODIUM 142 MMOL/L (135-145); TOTAL CARBON DIOXIDE 36.4 MMOL/L (24-32); eGFR 75 ML/MIN
[2017-11-27 07:24] VITALS: BP 153/93
[2017-11-27] MEDS: pantoprazole 40mg Tablet.DR PO SCH (07:45)
[2017-11-27] MEDS: lisinopril 10 MG tablet PO SCH (07:45)
[2017-11-27] MEDS: terbinafine 250mg tablet PO SCH (07:45)
[2017-11-27] MEDS: docusate sod 100mg capsule PO SCH (07:45)
[2017-11-27] MEDS: enoxaparin 40mg/0.4ml syringe SQ SCH (07:45)
[2017-11-27] MEDS: lactobacillus rhamnosus 10,000 MMU CELLS/CAPSULE PO SCH (07:45)
[2017-11-27] MEDS: furosemide 40mg/4ml inj IV SCH (07:45)
[2017-11-27] MEDS: clopidogrel 75mg tablet PO SCH (07:45)
[2017-11-27] MEDS: carVEDilol 3.125mg tablet PO SCH (07:46)
[2017-11-27] MEDS: amLODIPine 5mg tablet PO SCH (07:46)
[2017-11-27] MEDS: potassium Cl 20 mEq SR tablet PO SCH (07:46)
[2017-11-27] MEDS: metroNIDAZOLE 500mg tablet PO SCH (07:46)
[2017-11-27] MEDS: aspirin 81mg tab.chew PO SCH (07:46)
[2017-11-27] MEDS: thiamine 100mg tablet PO SCH (07:46)
[2017-11-27] MEDS: nicotine 21mg patch - 24 hr TD SCH (07:46)
[2017-11-27] MEDS: silver sulfadiazine cream 50gm TP SCH (07:47)
[2017-11-27] MEDS: insulin Lispro (HumaLOG) vial - multi-dose SQ SCH ×2 (09:15→13:29)
[2017-11-27 11:06] VITALS: BP 141/93
[2017-11-27] MEDS ORDERED: NO HOME MEDS (11:18)
[2017-11-27] MEDS: levoFLOXACIN 750MG TABLET PO SCH (11:57)
[2017-11-27] MEDS ORDERED: FOLI1TAB16 PO (12:07)
[2017-11-27] MEDS ORDERED: AMLO5TAB16 PO (12:07)
[2017-11-27] MEDS ORDERED: THI100T PO (12:07)
[2017-11-27] MEDS ORDERED: METR500T4 PO (12:07)
[2017-11-27] MEDS ORDERED: ASPI-1265 PO (12:07)
[2017-11-27] MEDS ORDERED: LEVO750T46 PO (12:07)
[2017-11-27] MEDS ORDERED: COR3.125T PO (12:07)
[2017-11-27] MEDS ORDERED: FURO-150 PO (12:07)
[2017-11-27] MEDS ORDERED: LISI10TA4 PO (12:07)
[2017-11-27] MEDS ORDERED: POTA20TA19 PO (12:07)
[2017-11-27] MEDS ORDERED: PENT400T2 PO (12:07)
[2017-11-27] MEDS ORDERED: CLOP75TA35 PO (12:07)
== END 2017-11-27 14:00 | disposition home or self-care (01) | DRG 344 ==
LOC: PCU 3S 21:48 → SUR 3N 11-20 10:03
PROVIDERS: ADMIT Legal Medicine; ATTEND Internal Medicine
PROC: 3E0234Z Introduction of Serum, Toxoid and Vaccine into Muscle, Percutaneous Approach (ICD-10-PCS; 2017-11-19)
PROC: 0W993ZZ Drainage of Right Pleural Cavity, Percutaneous Approach (ICD-10-PCS; principal; 2017-11-23)
DX: M86.8X7 Other osteomyelitis, ankle and foot (principal); I50.33 Acute on chronic diastolic (congestive) heart failure; E43 Unspecified severe protein-calorie malnutrition; I42.9 Cardiomyopathy, unspecified; E11.51 Type 2 diabetes mellitus with diabetic peripheral angiopathy without gangrene; L03.115 Cellulitis of right lower limb; L03.116 Cellulitis of left lower limb; F10.20 Alcohol dependence, uncomplicated; B35.1 Tinea unguium; E11.65 Type 2 diabetes mellitus with hyperglycemia; I87.2 Venous insufficiency (chronic) (peripheral); I73.9 Peripheral vascular disease, unspecified; E11.69 Type 2 diabetes mellitus with other specified complication; I11.0 Hypertensive heart disease with heart failure; I25.10 Atherosclerotic heart disease of native coronary artery without angina pectoris; I50.43 Acute on chronic combined systolic (congestive) and diastolic (congestive) heart failure; K31.9 Disease of stomach and duodenum, unspecified; M86.9 Osteomyelitis, unspecified; R09.02 Hypoxemia; Z72.0 Tobacco use; Z88.0 Allergy status to penicillin; Z88.1 Allergy status to other antibiotic agents; Z91.19 Patient's noncompliance with other medical treatment and regimen; Z23 Encounter for immunization
CPT/HCPCS: 32555; 36415; 71045; 71046; 80048; 80053; 80061; 80069; 80202; 81001; 82042; 82150; 82945; 82948; 83036; 83615; 83735; 83880; 83986; 84100; 85025; 85610; 85651; 85730; 86140; 87070; 87088; 90732; 93005; 93306; 93922; 93925; 97116; 97530; A6209; A6212; A6223; A6255; A6446; A6449; J1170; J1650; J1815; J1940; J1956; J3370; J3490; J7030